=== PATIENT | female | born 1935 | race Caucasian/White ===

== ENCOUNTER 2018-07-13 19:49 | Emergency (ER) | payer MEDICARE, OTHER ==
[~2018-07-13] VITALS: Ht 165.1 cm; Wt 81.8 kg
[2018-07-13 22:07] VITALS: BP 111/53
== END 2018-07-13 22:09 | disposition home or self-care (01) ==
LOC: ER 19:50
DX: S60.222A Contusion of left hand, initial encounter (principal); X58.XXXA Exposure to other specified factors, initial encounter; Y93.89 Activity, other specified; Y92.89 Other specified places as the place of occurrence of the external cause; Y99.8 Other external cause status
CPT/HCPCS: 73130; 99284

== ENCOUNTER 2018-07-14 20:31 | Emergency (ER) | payer MEDICARE, OTHER ==
[~2018-07-14] VITALS: Ht 167.6 cm; Wt 65.0 kg
[2018-07-14] MEDS ORDERED: albuterol 2.5 MG/3 ML nebule NEB ONE (21:00)
[2018-07-14 22:29] VITALS: BP 158/75
== END 2018-07-14 22:30 | disposition home or self-care (01) ==
LOC: ER 20:32
DX: S60.222D Contusion of left hand, subsequent encounter (principal); I10 Essential (primary) hypertension; F03.90 Unspecified dementia, unspecified severity, without behavioral disturbance, psychotic disturbance, mood disturbance, and anxiety; R06.2 Wheezing; Z60.2 Problems related to living alone; X58.XXXD Exposure to other specified factors, subsequent encounter
CPT/HCPCS: 94640; 94760; 99283